=== PATIENT | female | born 1985 | race Caucasian/White ===

== ENCOUNTER 2017-03-08 19:00 | Inpatient (IN) | payer OTHER ==
[~2017-03-08] VITALS: Ht 160 cm; Wt 59.0 kg
--- NOTE | ~2017-03-08 | DS ---
Unit #: [id number] #: [id number] Patient: KIRILL VERA [id number] [facility] [address] [place] [address] [id number] MR#: [id number] NAME: KIRILL VERA ROOM: [facility] Age: 31 Sex: F Admission Date: 03/09/2017 : 1985 Discharge Date: 03/12/2017 Attending Physician: Guillermo Melissa M.D. Primary Care Physician: Primary Care Physician No DISCHARGE SUMMARY REASON FOR ADMISSION Detox. DIAGNOSTIC STUDIES LABORATORY RESULTS: Total protein 5.7. HOSPITAL COURSE The patient was admitted to inpatient unit on 03/09/2017 and discharged on 03/12/2017. The patient was treated on the inpatient unit with group therapy, individual therapy, medication management, chemical dependency group, structured milieu. The patient was responsive to treatment, showed improvement in her mood and affect. Denied any suicidal or homicidal ideation or any psychotic symptom. Subsequently, the patient was discharged with a plan to follow up in outpatient program. DISCHARGE MEDICATIONS Celexa 20 mg daily for depression, Seroquel 150 mg daily for sleep. DISCHARGE DIAGNOSES Psychiatric: Opioid use disorder, severe, F11.20; amphetamine use disorder, severe, F15.20; mood disorder, not otherwise specified, F32.9. Secondary diagnosis: Deferred. Medical diagnosis: None. Stressors: Psychosocial stressors. DISCHARGE INSTRUCTIONS The patient to follow up in outpatient clinic as per social insurance administrator. CONDITION ON DISCHARGE The patient was pleasant and cooperative. Denied any psychotic symptom or any suicidal ideation. PROGNOSIS Guarded. DIET AND ACTIVITY As tolerated. Dictated by... Unit #: [id number] #: [id number] Patient: KIRILL VERA Myriam Chakraborty/stephanie TD: 03/12/2017 16:46 JOB #: [id number] DISCHARGE SUMMARY Page 1 of 1 X Guillermo Melissa MD X DISCHARGE SUMMARY
--- NOTE | ~2017-03-08 | PN ---
Unit #: [id number] #: [id number] Patient: KIRILL VERA [id number] [facility] [address] [place] [address] [id number] I MR#: [id number] NAME: KIRILL VERA ROOM: [facility] Age: 31 Sex: F Admission Date: 03/09/2017 : 1985 Attending Physician: Guillermo Melissa M.D. Admitting Physician: Guillermo Melissa M.D. Primary Care Physician: Primary Care Physician Alisha PHILIPPE PROGRESS NOTES DATE 03/11/2017 DISCUSSION Ms. Sandhu is a 31-year-old female, seen on 03/11/2017. The patient interviewed, chart reviewed, and obtained information from the nursing staff. The patient was compliant and cooperative. Mood sad and dysphoric, withdrawn, isolative, guarded, refusing to answer any questions, but guarded, currently on 72-hour hold. REVIEW OF SYSTEMS Complete review of systems unremarkable. MENTAL STATUS EXAMINATION General appearance: Patient dressed casually. Attention span and concentration, poor. Oriented in place and person. Mood and affect, sad and dysphoric. Speech, monotone. Thought process, concrete. The patient denied any thoughts of harming self or others but guarded. Recent and remote memory, poor. Insight and judgment, poor. DIAGNOSES 1. Opiate use disorder, severe. 2. Amphetamine use disorder, severe. 3. Sedative-hypnotic use disorder, moderate. 4. Mood disorder, NOS. ASSESSMENT/PLAN Advised to continue with the current medication and therapeutic protocol, and if needed consider further adjustment of medication. Dictated by... Myriam Chakraborty/fercho TD: 03/13/2017 05:41 JOB #: [id number] Unit #: [id number] #: [id number] Patient: KIRILL VERA [facility] PROGRESS NOTES Page 1 of 1 X Guillermo Melissa MD PROGRESS NOTE
--- NOTE | ~2017-03-08 | PN ---
Unit #: [id number] #: [id number] Patient: KIRILL VERA [id number] [facility] [address] [place] [address] [id number] MR#: [id number] NAME: KIRILL VERA ROOM: [facility] Age: 31 Sex: F Admission Date: 03/09/2017 : 1985 Attending Physician: Guillermo Melissa M.D. Admitting Physician: Guillermo Melissa M.D. Primary Care Physician: Primary Care Physician Alisha BARRY NOTES DATE 03/10/2017 DISCUSSION Ms. Sandhu is a 31-year-old female. Patient seen on 03/10/2017. Patient interviewed. Chart reviewed. Obtained information from nursing staff. Patient compliant, cooperative, withdrawn, isolative, anxious, sad, dysphoric mood. Vital signs 98.4, 89, 109/71. Patient still reporting having withdrawal symptoms, withdrawn, isolative, anxious. Complete review of system unremarkable. MENTAL STATUS EXAMINATION General appearance, patient dressed casually. Attention span, concentration poor. Oriented in place and person. Mood and affect sad, dysphoric. Speech monotone. Thought process concrete. Patient denied any suicidal or homicidal ideation. Denied any psychotic symptoms but still sad, depressed. Recent and remote memory poor. Insight and judgement poor. DIAGNOSES 1. Opiate use disorder, severe. 2. Amphetamine use disorder, severe. 3. Sedative/hypnotic use disorder, moderate. 4. Mood disorder NOS. ASSESSMENT/PLAN Advised to continue with current medication and therapeutic protocol. If needed, consider further adjustment of medication. Dictated by... Myriam Chakraborty/juan josé TD: 03/10/2017 22:06 JOB #: [id number] Unit #: [id number] #: [id number] Patient: KIRILL VERA [facility] PROGRESS NOTES Page 1 of 1 X Guillermo Melissa MD X PROGRESS NOTE
--- NOTE | ~2017-03-08 | PA ---
Unit #: [id number] #: [id number] Patient: KIRILL VERA [id number] [facility] [address] [place] [address] [id number] I MR#: [id number] NAME: KIRILL VERA ROOM: [facility] Age: 31 Sex: F Admission Date: 03/09/2017 : 1985 Date of Assessment: Attending Physician: Guillermo Melissa M.D. Admitting Physician: Guillermo Melissa M.D. Primary Care Physician: Primary Care Physician No PSYCHIATRIC ASSESSMENT INFORMANTS The patient reliability, fair; chart reliability, good. CHIEF COMPLAINT Detox from opiates and meth. HISTORY OF PRESENT ILLNESS Ms. Sandhu is a 31-year-old female, seen on , presented with the above-mentioned complaint. The patient reports that she is trying to get clean, but she got out of rehab last week. The patient reports that when she get out of the treatment, it was getting harder for her to keep it clean. The patient reported using heroin, meth, Xanax. The patient reported use of heroin, last use IV 1 g daily. The patient reported using 1 to 2 g of meth every day, last use on 03/02/2017. The patient reported using 4 to 5 Xanax bars couple of times, last use 03/05/2017. The patient denied any suicidal or homicidal ideation. Reported increase in anxiety. Denied any hallucination. Needing inpatient admission at this time for psychiatric stabilization. PAST PSYCHIATRIC HISTORY Remarkable for history of recent treatment at [facility], 01/23/2017; inpatient at [facility] 11/23/2016. FAMILY HISTORY AND SOCIAL HISTORY The patient has a poor support system, currently unemployed. No known history of any abuse. Family psychiatric illness is unknown at this time. MEDICAL HISTORY Unremarkable for any chronic medical illness. Musculoskeletal; muscle strength and tone, no atrophy or abnormal movement. Gait normal. MEDICATION HISTORY None. ALLERGIES No known drug allergies. SUBSTANCE ABUSE HISTORY The patient reported tobacco use, age of onset 19; alcohol, age of onset 18; marijuana, age of onset 18; opiate, age of onset 30; amphetamine, age of onset 26; benzodiazepine, age of onset 17. Longest period of sobriety 30 days. Last period of sobriety 01/2017. The patient reported consequences including legal problem, social problem, financial and Unit #: [id number] #: [id number] Patient: KIRILL VERA relationship problem. Reported history of blackouts, IV drug use, withdrawal symptom, but no history of any HIV or hepatitis. Currently reporting abdominal cramping, diaphoresis, depressed mood, irritability, poor concentration, headache, insomnia, and rhinorrhea. REVIEW OF SYSTEMS HEENT: Eyes, clear. Ears, nose, mouth, and throat; clear. CARDIOVASCULAR: Unremarkable. RESPIRATORY: Unremarkable. GI: Unremarkable. : Unremarkable. SKIN: Unremarkable. LYMPH NODE: Unremarkable. NEUROLOGIC: Unremarkable. ENDOCRINE: Unremarkable. HEMATOLOGIC: Unremarkable. ALLERGIC/IMMUNOLOGIC: Unremarkable. MUSCULOSKELETAL: Muscle strength and tone, no atrophy or abnormal movement. Gait normal. MENTAL STATUS EXAMINATION CONSTITUTIONAL: Measurement of vital signs; temperature 98.8, pulse 91, respirations 16, blood pressure 135/90, height 5 feet 3 inches, weight 130 pounds. GENERAL APPEARANCE: The patient dressed casually. The patient did not show any facial deformity. MUSCULOSKELETAL: Please see above. PSYCHIATRIC EXAMINATION Description of speech; regular rate, normal volume, normal articulation, coherent. Description of thought process, goal directed. Description of association, intact. Description of abnormal psychotic thinking; the patient denied any hallucination, but sad, depressed, anxious. Denied any suicidal or homicidal ideation. Substance abuse. Description of the patient's judgment, concerning everyday activity, poor. Social situation, poor. Concerning psychiatric condition, poor. Complete mental status examination; oriented in time, place, and person. Recent and remote memory, fair. Attention span and concentration, fair. Language, able to name object and repeat phrases. Fund of knowledge, aware of current event and passive vocabulary intact. Mood and affect, sad and dysphoric. Insight and judgment, fair to poor. ASSETS AND LIABILITIES Assets; the patient is articulate, able to take care of her ADL. Liability; history of depression and substance abuse. ADMITTING DIAGNOSES Psychiatric: Opiate use disorder, severe, F11.20; amphetamine use disorder, severe, F15.20; mood disorder, not otherwise specified, F32.9. Secondary diagnosis: Deferred. Medical diagnosis: None. Stressors: Psychosocial stressors. PSYCHIATRIC PLAN AND TREATMENT GOAL AND DISCHARGE PLAN Unit #: [id number] #: [id number] Patient: KIRILL VERA 1. Advised to admit the patient on the inpatient unit. Provide safe, supportive, and structured environment. 2. Ordered labs; CBC, CMP, UA, and UDS. 3. Precaution for self-harm, detox protocol, and detox monitoring. 4. The patient to attend all the programming group therapy, individual therapy, chemical dependency group. 5. Treatment goal; to attain euthymic mood, gain insight into her problem, and learn coping skills. 6. Discharge plan; plan to stabilize the patient and consider followup in outpatient program. ESTIMATED LENGTH OF STAY 5 to 7 days. Dictated by... Guillermo Melissa M.D. CODIE/stephanie TD: 03/09/2017 14:35 JOB #: [id number] PSYCHIATRIC ASSESSMENT Page 1 of 1 X Guillermo Melissa MD PSYCHIATRIC ASSESSMENT
--- NOTE | ~2017-03-08 | HP ---
Unit #: [id number] #: [id number] Patient: PHOEBE VERA [id number] [place] [address] [id number] MR#: [id number] NAME: PHOEBE VERA ROOM: [facility] Age: 31 Sex: F Admission Date: 03/09/2017 : 1985 Attending Physician: Guillermo Melissa M.D. Admitting Physician: Guillermo Melissa M.D. Primary Care Physician: Primary Care Physician No HISTORY AND PHYSICAL HISTORY OF PRESENT ILLNESS Phoebe is a 31-year-old female admitted to [facility] because of her illicit drug use which includes shooting heroin. PAST MEDICAL HISTORY Long history of opioid abuse to include IV heroin. PAST SURGICAL HISTORY Nothing reported. ALLERGIES No known drug allergies. SOCIAL HISTORY Smokes 1 pack per day. Denies alcohol. Admits to a long history of opioid abuse to include IV heroin. FAMILY HISTORY Medically noncontributory. REVIEW OF SYSTEMS CONSTITUTIONAL: No fever or chills. HEENT: Denies any sore throat, ear pain or runny nose. CARDIOVASCULAR: Denies chest pain, irregular heart rhythm or palpitations. CHEST: Denies shortness of breath or cough. No hemoptysis. GASTROINTESTINAL: Denies nausea, vomiting, diarrhea or chronic constipation. ENDOCRINE: Denies history of increased thirst or urination. No recent significant weight loss or gain. GENITOURINARY: Denies dysuria, frequency, or hematuria. SKIN: Denies any rashes. HEMATOLOGIC: Denies history of increased bleeding or bruising. MUSCULOSKELETAL: Denies any hot, swollen joints. No generalized muscle pain. NEUROLOGIC: Denies problems with vision or speech. No frequent, severe headaches. No numbness, tingling or weakness in any extremities. Denies loss of bladder or bowel control. CURRENT MEDICATIONS 1. Detox protocol. 2. Celexa 20 mg daily. 3. Trazodone 75 mg q.h.s. p.r.n. Unit #: [id number] #: [id number] Patient: PHOEBE VERA PHYSICAL EXAMINATION GENERAL: Alert, well-nourished, in no apparent distress. VITAL SIGNS: Blood pressure 134/90, heart rate 90, respirations 16, temperature 98.6. WEIGHT: 130. HEIGHT: 5 feet 3 inches. SKIN: Warm and dry without rash or lesion. HEENT: Normocephalic. TMs not viewed. Oral and nasal passages clear. Conjunctivae clear. PERRLA. EOMs intact. NECK: Supple without lymphadenopathy or thyromegaly. HEART: Regular rate and rhythm without murmur. LUNGS: Clear. ABDOMEN: Soft, nontender. : Not done. EXTREMITIES: No evidence of cyanosis, clubbing or edema. Moves all without focal deficit. NEUROLOGICAL: Grossly within normal limits. Cranial Nerves: II: Visual wade are intact. III, IV AND : Extraocular movements are intact. Pupils are equal, round and reactive to light. V: Facial sensation is grossly normal. VII: Facial movements and expression are normal. VIII: Auditory acuity grossly intact. IX, X: Uvula is midline. Phonation is normal. XI: Patient shrugs shoulders and turns head normally. XII: Tongue protrudes in the midline. Sensory and Motor Function: Sensory and motor sensation is grossly normal. Motor: moves all extremities well. Coordination: Gait is normal. Deep Tendon Reflexes: Intact. IMPRESSION Psychiatric admission. RECOMMENDATIONS PSYCHIATRIC: Per psychiatrist. MEDICAL: See no contraindication to participate in facility's activities. MEDICAL PROGNOSIS Good. MEDICAL CONDITION Stable. Dictated by... Zainab Romero PSongASong-Conrado. for Myriam Valdez/juan josé TD: 03/09/2017 21:20 JOB #: [id number] Unit #: [id number] #: [id number] Patient: PHOEBE VERA HISTORY AND PHYSICAL Page 1 of 1 X Zainab Romero HISTORY AND PHYSICAL
[2017-03-09 09:51] LABS: BASOPHIL% 0.4 % (0-2.5); EOSINOPHIL# 0.1 X10e3 (0-0.7); EOSINOPHIL% 1.2 % (0.0-7.0); HEMOGLOBIN 13.3 gm/dL (12.0-16.0); LYMPHOCYTE# 3.9 X10e3 (1.0-3.5); LYMPHOCYTE% 35.7 % (17.0-45.0); MEAN CELL VOLUME 92.8 FL (83-96); MEAN CORPUSCULAR HEMOGLOBIN 30.9 PG (28-34); MEAN CORPUSCULAR HGB CONC 33.3 g/dL (30-36); MEAN PLATELET VOLUME 8.2 FL (6.5-11.5); MONOCYTE# 0.6 X10e3 (0-1.0); MONOCYTE% 5.5 % (3.0-12.0); NEUTROPHIL# 6.3 X10e3 (1.5-7.1); NEUTROPHIL% 57.2 % (40-75); PLATELET COUNT 269 X10e3 (140-420); RED BLOOD COUNT 4.31 X10e (3.90-5.30); RED CELL DISTRIBUTION WIDTH 13.2 % (11.0-15.5)
[2017-03-09 09:53] LABS: DIFF IND NO
[2017-03-09 10:48] LABS: ALBUMIN SERUM 3.6 g/dL (3.5-5.0); BILIRUBIN,TOTAL 0.1 mg/dL (0.2-2.0); BUN/CREATININE RATIO 11.11; CALCIUM SERUM 8.8 mg/dL (8.4-10.2); CREATININE SERUM 0.9 mg/dL (0.6-1.4); GLOM FILT RATE Estimated 86.5 mL/min (>60); POTASSIUM 4.3 mmol/L (3.5-5.1); PROTEIN TOTAL SERUM 5.7 g/dL (6.0-8.3)
== END 2017-03-12 14:35 | DRG 897 ==
LOC: P1E 03-09 02:16
PROVIDERS: Psychiatry & Neurology Psychiatry
PROC: HZ2ZZZZ Detoxification Services for Substance Abuse Treatment (ICD-10-PCS; principal; 2017-03-09)
DX: F11.20 Opioid dependence, uncomplicated (principal); F13.20 Sedative, hypnotic or anxiolytic dependence, uncomplicated; F15.20 Other stimulant dependence, uncomplicated; F39 Unspecified mood [affective] disorder; F17.210 Nicotine dependence, cigarettes, uncomplicated
CPT/HCPCS: 80053; 84703; 85025; 86592

== ENCOUNTER 2017-03-17 03:41 | Inpatient (IN) | payer OTHER ==
[~2017-03-17] VITALS: Ht 160 cm; Wt 62.5 kg
--- NOTE | ~2017-03-17 | CR63 ---
[facility] A Service of [facility] RADIOLOGY TEXT RESULTS PATIENT: KIRILL VERA LOCATION: [place] [address] : [birth year] UNIT #: [id number] AGE: [address]: Corinne Dunham MD SEX: F ORDER DR: [id number] [facility] [address] [place], [place] [address] [id number] I MR#: [id number] Acc #: [id number] NAME: KIRILL VERA : 1985 SEX: F STUDY DATE/TIME: 03/17/2017 6:09 UNIT: [facility] ROOM: 4 STUDY DESCRIPTION: CR Chest 2 View Attending Physician: Corinne Dunham M.D. Ordering Physician: Kishan Bradley Aprn Primary Care Physician: No Primary Care Physician MEDICAL IMAGING REPORT This report is preliminary unless electronic signature is present EXAM Chest, 2 views. CLINICAL HISTORY Cough, short of air and anxiety started today. COMMENT Two views of the chest reviewed. COMPARISON None. FINDINGS Lungs are hyperinflated or there is an excellent inspiration effort. There is no pleural effusion. The heart size is normal. There is no acute infiltrate, acute congestive failure or pneumothorax. Nipple shadow appreciated on the left. IMPRESSION Either mild hyperinflation or an excellent for a effort. Otherwise no active disease. Dictated by... Lisa Frazier M.D. THIS IS AN ELECTRONICALLY VERIFIED REPORT Lisa Frazier M.D. at 03/18/2017 9:24 AM COLLIN/patricia TD: 03/18/2017 00:22 JOB #: [id number] [facility] A Service [facility] RADIOLOGY TEXT RESULTS PATIENT: KIRILL VERA LOCATION: [place] [address] : [birth year] UNIT #: [id number] AGE: [address]: Corinne Dunham MD SEX: F ORDER DR: MEDICAL IMAGING REPORT Page 1 of 1 COPY
--- NOTE | ~2017-03-17 | CR132 ---
[facility] A Service of [facility] & [facility] RADIOLOGY TEXT RESULTS PATIENT: KIRILL VERA LOCATION: [facility] [id number] : [birth year] UNIT #: [id number] AGE: [address]: Corinne Dunham MD SEX: F ORDER DR: [id number] [facility] [address] [facility]. [place], [place] [address] [id number] MR#: [id number] Acc #: [id number] NAME: KIRILL VERA : 1985 SEX: F STUDY DATE/TIME: 03/17/2017 04:41 UNIT: [facility] ROOM: 4 STUDY DESCRIPTION: CR Forearm 2 View Lt Attending Physician: Corinne Dunham M.D. Ordering Physician: Kishan Bradley Aprn Primary Care Physician: No Primary Care Physician MEDICAL IMAGING REPORT This report is preliminary unless electronic signature is present EXAM Left forearm, 03/17/2017 at 04:41. INDICATIONS Pain, swelling and redness since yesterday. Possible bite or needle use. FINDINGS Two views of the left forearm were obtained. There is no fracture or malalignment. There are no radiopaque foreign bodies. There is no soft tissue gas. IMPRESSION Negative left forearm. Dictated by... Dilan Pittman Jr., M.D. THIS IS AN ELECTRONICALLY VERIFIED REPORT Dilan Pittman Jr., M.D. at 03/18/2017 4:57 AM DAVINA/patricia TD: 03/18/2017 00:00 JOB #: [id number] MEDICAL IMAGING REPORT Page 1 of 1 COPY
--- NOTE | ~2017-03-17 | DS ---
Unit #: [id number] #: [id number] Patient: KIRILL HIGHTOWER [id number] [address] [address] [id number] I MR#: [id number] NAME: KIRILL HIGHTOWER ROOM: 46 Age: 31 Sex: F Admission Date: 03/17/2017 : 1985 Discharge Date: 03/17/2017 Attending Physician: Corinne Dunham M.D. Primary Care Physician: No Primary Care Physician DISCHARGE SUMMARY PRINCIPAL DIAGNOSES 1. Sepsis, secondary to left wrist cellulitis. 2. Acute kidney injury, prerenal. 3. Acute methamphetamine intoxication. 4. IV drug abuse including methamphetamine. 5. History of polysubstance abuse. 6. Hypokalemia. 7. Tobaccoism. 8. Questionable bacteremia. PLUG SORTER None. PROCEDURES 1. X-ray of the left forearm on March 17, 2017, which was negative. 2. Chest x-ray on March 17, 2017, which was also negative with the exception of some hyperinflation. CLINICAL HISTORY AND HOSPITAL COURSE Ms. Hightower is a 31-year-old female, who presents to the emergency department with left wrist swelling after injecting methamphetamine. She was found to have significant leukocytosis upon presentation and was subsequently admitted. The patient was placed on empiric broad-spectrum antibiotics and started on sepsis protocol in addition to IV fluids. The patient was significantly intoxicated with methamphetamines throughout the day and was treated with oral Ativan. Later that evening when patient's father arrived, she decided to leave the hospital against medical advice to reportedly be at a hospital closer to her home. No antibiotics were given. I will note today record review indicates she has had 1/2 positive blood cultures which I will ask my partners to follow up on tomorrow to evaluate whether this is a contaminate versus true infection. Dictated by... Corinne Dunham M.D. [facility]/sukh TD: 03/19/2017 10:43 JOB #: [id number] Unit #: [id number] #: [id number] Patient: KIRILL HIGHTOWER DISCHARGE SUMMARY Page 1 of 1 X Corinne Dunham MD X DISCHARGE SUMMARY
--- NOTE | ~2017-03-17 | EKG ---
PATIENT: KIRILL VERA UNIT #: [id number] Ventricular Rate: 108 BPM Atrial Rate: 108 BPM P-R Interval: 142 ms QRS Duration: 84 ms Q-T Interval: 360 ms QTC Calculation(Bezet): 482 ms P [place]: 64 degrees Calculated R [place]: 61 degrees Calculated T [place]: 56 degrees Diagnosis Line: Sinus tachycardia Diagnosis Line: Otherwise normal ECG Diagnosis Line: No previous ECGs available Diagnosis Line: Confirmed by YANELI JORDAN MD ([id number]) on 03/18/2017 Diagnosis Line: 3:01:40 PM INTERPRETING MD: NIKKI WALLACE
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
[2017-03-17 05:43] LABS: BASOPHIL# 0.1 X10e3 (0-0.3); BASOPHIL% 0.3 % (0-2.5); EOSINOPHIL# 0.1 X10e3 (0-0.7); EOSINOPHIL% 0.3 % (0.0-7.0); HEMATOCRIT 42.2 % (35.0-45.0); HEMOGLOBIN 14.4 gm/dL (12.0-16.0); LYMPHOCYTE% 15.4 % (17.0-45.0); MEAN CELL VOLUME 90.6 FL (83-96); MEAN CORPUSCULAR HEMOGLOBIN 30.9 PG (28-34); MEAN CORPUSCULAR HGB CONC 34.1 g/dL (30-36); MEAN PLATELET VOLUME 7.8 FL (6.5-11.5); MONOCYTE# 1.5 X10e3 (0-1.0); MONOCYTE% 7.4 % (3.0-12.0); NEUTROPHIL% 76.6 % (40-75); PLATELET COUNT 371 X10e3 (140-420); RED BLOOD COUNT 4.66 X10e (3.90-5.30); RED CELL DISTRIBUTION WIDTH 13.1 % (11.0-15.5); WHITE BLOOD COUNT 19.6 X10e3 (4.0-10.5)
[2017-03-17 05:45] LABS: DIFF IND YES
[2017-03-17 05:55] LABS: BUN/CREATININE RATIO 23.33; CALCIUM SERUM 9.6 mg/dL (8.4-10.2); CREATININE SERUM 1.2 mg/dL (0.6-1.4); POTASSIUM 3.4 mmol/L (3.5-5.1)
[2017-03-17 06:07] LABS: PLATELET ESTIMATE NORMAL (NORMAL); RBC NORMAL YES
[2017-03-17 08:21] LABS: INR 1.2; PROTHROMBIN TIME (PATIENT) 12.9 SECONDS (10.0-11.7)
[2017-03-17 11:55] LABS: URINE SOURCE CLEAN CATCH
[2017-03-17 12:02] LABS: URINE APPEARANCE TURBID; URINE BILIRUBIN NEG (NEG); URINE BLOOD 3+ (NEG); URINE COLOR YELLOW; URINE GLUCOSE NEG (NEG); URINE KETONE 1+ (NEG); URINE LEUKOCYTE ESTERASE NEG (NEG); URINE NITRATE POS (NEG); URINE PH 5.5 (5-8); URINE PROTEIN TRACE (NEG); URINE SPECIFIC GRAVITY 1.029 (1.003-1.035); URINE UROBILINOGEN 0.2 MG/DL (NEG)
[2017-03-17 12:04] LABS: CULTURE INDICATED? YES; URINE BACTERIA AUWI 4+ (NEGATIVE); URINE SQUAMOUS EPITHELIAL CELL NONE SEEN /[HPF]
[2017-03-17 12:19] LABS: AMPHETAMINE POS (NEG); BARBITURATES NEG (NEG); BENZODIAZEPINES POS (NEG); COCAINE NEG (NEG); MARIJUANA NEG (NEG); OPIATES NEG (NEG); TRICYCLIC ANTIDEPRESSANTS POS (NEG); U METHADONE NEG (NEG)
[2017-03-22 02:05] LABS: HA AB IGM (HEPPAN) Nonreactive (()); HB CORE AB IGM (HEPPAN) Nonreactive (Nonreactive); HB S AG (HEPPAN) Nonreactive (Nonreactive); HEP C AB (HEPPAN) Nonreactive (Nonreactive); HEP C AB SIGNAL TO CUTOFF 0.01 ratio (<1.00)
== END 2017-03-17 20:50 | disposition left against medical advice (07) | DRG 872 ==
LOC: CED 03:41 → CEDOF 06:10 → CED 07:23 → CEDOF 12:03 → C4C 12:03
PROVIDERS: Internal Medicine; Nurse Practitioner Family
DX: A41.9 Sepsis, unspecified organism (principal); N17.9 Acute kidney failure, unspecified; L03.114 Cellulitis of left upper limb; F15.129 Other stimulant abuse with intoxication, unspecified; E87.6 Hypokalemia; F17.200 Nicotine dependence, unspecified, uncomplicated; F11.10 Opioid abuse, uncomplicated; Z98.51 Tubal ligation status
CPT/HCPCS: 36415; 71020; 73090; 80048; 80074; 80307; 81003; 83605; 84484; 85025; 85610; 87040; 87086; 87088; 87186; 87806; 90715; 93005; 96360; 99285; J0696; J1885; J3370